=== PATIENT | male | born 1990 | race Caucasian/White ===

== ENCOUNTER 2023-04-03 11:40 | Outpatient (OUT) | payer OTHER, SELFPAY ==
[2023-04-03 13:04] LABS: Thyroid Stimulating Hormone 0.418 uIU/mL (0.358-3.740)
== END 2023-04-03 11:41 | disposition home or self-care (01) ==
LOC: LAB 11:46
DX: E05.90 Thyrotoxicosis, unspecified without thyrotoxic crisis or storm (principal)
CPT/HCPCS: 36415; 84439; 84443

== ENCOUNTER 2025-03-15 06:36 | Emergency (ER) | payer OTHER, SELFPAY ==
[2025-03-15 06:48] VITALS: BP 143/92; PULSE 78; TEMP 36.6; O2SAT 97; BMI 24.2
--- OUTSIDE RECORDS SUMMARY | 2025-03-15 06:53 | XMS_ITS | Clinical Summary ---
Author Organization [employer] [facility] Address [id number] [address] [place] [address] Care Team Providers Care Interstate Planner Name Role Phone Rafymarioedita Shantell JOSIAH-SUBSTATION WIREMAN Primary Care Provide r Allergies No known active allergies Medications MedicationSigDispense QuantityRefillsLast FilledStart DateEnd DateStatus hyoscyamine (LEVSIN) 0.125 mg tablet Take 1 tablet (0.125 mg total) by mouth every 4 (four) hours as needed for cramping. 30 tablet 4Active hydrocortisone (ANUSOL-HC) 2.5 % rectal cream Insert 1 Application into the rectum in the morning and 1 Application before bedtime. 30 g 4Active amitriptyline (ELAVIL) 25 mg tablet Take 1 tablet (25 mg total) by mouth nightly. 90 tablet 5Active omeprazole (PriLOSEC) 40 mg capsule Take 1 capsule (40 mg total) by mouth every morning before breakfast. 90 capsule 5Active Active Problems ProblemNoted DateDiagnosed MeogGdxswyp08/22/2024 Immunizations ImmunizationAdministration DatesNext DueDTaP, Qxxjfexmnbz71/07/1997,12/23/1992, 1991,1991,1991Hep B, Adolescent or Gbxofpryu35/27/2005, 11/20/2004,10/16/2004HiB06/10/1992,1991,1991,1991Influenza, Injectable, quadrivalent (PF)02/18/2018MMR12/07/1996,06/10/1992Meningococcal ANA0H58Polio, Ycuafiiiezg44/07/1997,12/23/1992,1991,1991Tdap 04/28/20056871Aunczvrtw65/21/2005,10/16/2004 Social History Tobacco UseTypesPacks/DayYears UsedDateSmoking Tobacco: Every DayCigarettes Smokeless Tobacco: Current Tobacco Cessation:Ready to Q uit: Not Asked; Counseling Given: Not Answered Alcohol UseStandard Drinks/WeekCommentsYes0 (1 standard drink = 0.6 oz pure alcohol)Overall Financial Resource Strain (CARDIA)AnswerDate RecordedHow hard is it for you to pay for the very basics like food, housing, medical care, and heating?Patient fdmynmdq79/16/2025PHQ-2AnswerDate RecordedTotal Cspmg921 PRAPARE - TransportationAnswerDate RecordedIn the past 12 months, has lack of transportation kept you from medical appointments or from getting medications? Patient /16/2025In the past 12 months, has lack of transportation kept you from meetings, work, or from getting things needed for daily living?Patient widnibcv81/16/2025Housing InstabilityAnswerDate RecordedAre you worried or concerned that in the next two months you may not have stable housing that you own, rent or stay in as a part of a household?Patient Mbxhukmz76/16/2025 ChildcareAnswerDate OjzqdzbfXvqatywykBqbisyq47/12/2019EmploymentAnswerDate VmfomymwUftndfujaaZlprhgb09/12/2019Hunger ScreeningAnswerDate RecordedWithin the past 12 months we worried whether our food would run out before we got money to buy more.Patient Sorxhrpg73/16/2025Within the past 12 months the food we bought just didn't last and we didn't have money to get more.Patient Beawrira82/16/2025 Sex and Gender InformationValueDate RecordedSex Assigned at BirthNot on file Legal JmuPpcr7012/06/2014 11:44 AM EDTGender IdentityNot on fileSexual Orientation Not on file Last Filed Vital Signs Vital SignReadingTime TakenCommentsBlood Xmtrbwab322/6411/ 8:58 AM EST Akyew967903/21/2024 8:58 AM QIGSrdupmjvwad50.7 ??C (98.1 ??F)07/14/2023 9:59 AM EDTRespiratory Ecxy685905/21/2023 8:58 AM ESTOxygen Iahwhtnqma39%03/21/2024 8:58 AM ESTInhaled Oxygen Concentration--Jkxvrk79.1 kg (148 lb)03/21/2024 8:58 AM EST Vylhzj614.7 cm (5' 8 )09/22/2023 7:51 AM EDTBody Mass Index22.505 7:51 AM EDT Plan of Treatment DateTypeDepartmentCare Team (Latest Contact Info)Dxbadhgzjne93/15/2025 3:00 PM ESTOffice Visit [facility] [address] [place] [id number] Shantell Soto, [employer]IMMER-SUBSTATION WIREMAN [address] [place], [place] [id number] Health MaintenanceDue DateLast DoneCommentsTobacco Padsqaanxu1991DTaP,Tdap and Td Vaccines (7 - Td or Tdap), 12/07/1996, 12/23/1992, Additional history existsDepression Xjfiktatn40/OVID-19 Vaccine ( season)/, 09/05/2020Influenza Vaccine /Adult BMI Rfcaqtctz04/Tobacco Screening Medical Devices Not on file Insurance Care Teams Team MemberRelationshipSpecialtyStart DateEnd Date Shantell Soto APRN-SUBSTATION WIREMAN [address] [place] [address] PCP - GeneralFamily Medicine08/12/22
--- OUTSIDE RECORDS SUMMARY | 2025-03-15 06:53 | XMS_ITS | Clinical Summary ---
Author Organization [facility] Address [address] [place] [address] Care Team Providers Care Molding Plasterer Name Role Phone Nicolas John Primary Care Provider Allergies No known active allergies Medications MedicationSigDispense QuantityRefillsLast FilledStart DateEnd DateStatus esomeprazole (NEXIUM) 40 mg ORAL capsule Indications:Abdominal pain,Reflux,Abdominal pain, periumbilicTake 1 capsule by mouth twice daily. 60 capsule ctive amitriptyline 10 mg ORAL tablet Take 1 tablet by mouth daily at bedtime. 30 tablet ctive Active Problems ProblemNoted DateDiagnosed DateAbdominal pain04/06/20119140Rldiuq42/05/2011 Social History Tobacco UseTypesPacks/DayYears UsedDateSmoking Tobacco: Every DayCigarettes Alcohol UseStandard Drinks/WeekCommentsNo0 (1 standard drink = 0.6 oz pure alcohol)Sex and Gender InformationValueDate RecordedSex Assigned at BirthNot on fileLegal NzaRxku24/02/2012 10:12 AM ESTGender IdentityNot on fileSexual OrientationNot on file Last Filed Vital Signs Vital SignReadingTime TakenCommentsBlood Moxjhosb128/6704/06/2011 9:30 AM EST Rbriu389204/06/2011 9:30 AM ESTTemperature--Respiratory Rate--Oxygen Saturation 100%04/06/2011 9:30 AM ESTInhaled Oxygen Concentration--Acqhgc44.7 kg (125 lb) 04/06/2011 9:30 AM ESTHeight--Body Mass Index-- Plan of Treatment Health MaintenanceDue DateLast DoneCommentsAnxiety Bnbquycqo80/14/2009Depression Rtllfwgjo89/14/2009HIV Jnktyvdku83/14/2009Hepatitis C Sjfbbzazs25/14/2009 DTaP,Tdap,Td Vaccine (1 - Tdap)2010Hepatitis B Vaccine (1 of 3 - 19+ 3- dose series)2010HPV Vaccine (1 - 3-dose SCDM series)2018Covid-19 Vaccine (1 - 2024- season)2025Influenza Vaccine (#1)2025 Insurance Care Teams Team MemberRelationshipSpecialtyStart DateEnd Date Nicolas John PCP - GeneralFamily Zhbfpzdi80/2/11
--- OUTSIDE RECORDS SUMMARY | 2025-03-15 06:53 | XMS_ITS | CCD ---
Author Organization [facility] Care Team Providers Care Window Draper Name Role Phone Mary Knox Unavailable Ramila Charisma Unavailable OMEGA, DR SHELBI Damon Consulting Unavailable REQUEST, DR NONE LISTED Primary Care Unavaila ble MISC, DR CABELLO Attending Unavailable MISC, DR CABELLO Admitting Unavailable MISC, DR CABELLO Consulting Unavailable SLY SOTO Referring Unavailable SLY SOTO Primary Care Unavailable Schboris PLANT ELECTRICIAN-UPHOLSTERY AUTO TRIMMER, Sly Primary Care Provide r Brittany PLANT ELECTRICIAN-UPHOLSTERY AUTO TRIMMER, Sly Primary Care Provide r SLY SOTO Attending Unavailable SLY SOTO Referring Unavailable SLY SOTO Primary Care Unavailable SLY SOTO Attending Unavailable SLY SOTO Referring Unavailable SLY SOTO Primary Care Unavailable Medications Current Medications MedicationDrug Class(es)DatesSig (Normalized)Sig (Original)amitriptyline hydrochloride 25 mg oral tablet (14 sources)Tricyclic AntidepressantStart: 74-65-1364dkkl 1 tablet by mouth once dailyamitriptyline (ELAVIL) 25 mg tablet Take 1 tablet (25 mg total) by mouth nightly. 90 tablet 1 10/12/2024 ActiveStart: 03-21-2024 End: 33-60-8108cwim 1 tablet by mouth once dailyAmitriptyline 25 mg tablet Active 25 MG PO Daily August 24, 2024 12:00amStart: 09-22-2023 End: 73-52-5548csmo 1 tablet by mouth once dailyamitriptyline (ELAVIL) 50 mg tablet Take 1 tablet (50 mg total) by mouth nightly. 90 tablet 09/22/2023 03/21/2024 DiscontinuedStart: 03-17-2023 End: 09-60-0490htzx 1 tablet by mouth once dailyamitriptyline (ELAVIL) 25 mg tablet take 1 tablet by mouth nightly 90 tablet 1 09/13/2023 09/22/2023 Discontinueddextromethorphan hydrobromide 15 mg / guaiFENesin 400 mg / pseudoephedrine hydrochloride 60 mg oraltablet (1 source)alpha-Adrenergic Agonist, Uncompetitive V-rampel-P-aspartate Receptor Antagonist, Sigma-1 AgonistStart: 17-33-4605rkyn 4 tablets by mouth every twenty-four hours as icozrtQlrhdimauerwkaz-Gg-Qxpprucwtkd (Capmist Dm) 60-15-400 mg tablet Active 1 TAB PO EVERY 4-6 HOURS as needed for cold symptoms August 24, 2024 12:00am do not exceed 4 doses per 24 hrshydrocortisone 25 mg/ml topical cream (3 sources)CorticosteroidStart: 00-18-2235amstzgqnzazemw (ANUSOL-HC) 2.5 % rectal cream Insert 1 Application into the rectum in the morning and 1 Application before bedtime. 30 g 1 03/21/2024 Activehyoscyamine sulfate 0.125 mg oral tablet (9 sources)Start: 64-69-1370bibw 1 tablet by mouth every four hours as needed for painhyoscyamine (LEVSIN) 0.125 mg tablet Take 1 tablet (0.125 mg total) by mouth every 4 (four) hours as needed for cramping. 30 tablet 07/14/2023 Active omeprazole 40 mg delayed release oral capsule (13 sources)Proton Pump InhibitorStart: 99-27-6506jkbh 1 capsule by mouth once daily before breakfastomeprazole (PriLOSEC) 40 mg capsule Take 1 capsule (40 mg total) by mouth every morning before breakfast. 90 capsule 1 10/12/2024 Active Start: 01-11-2023 End: 15-15-4381eokh 1 capsule by mouth once dailyOmeprazole 40 mg capsule,delayed release(DR/EC) Active 40 MG PO Daily August 24, 2024 12:00am Problems Active Problems Problem ClassificationProblemDateDocumented DateEpisodic/ChronicAbdominal pain (4 sources)Abdominal pain; Translations: [Abdominal pain]Onset: 08-27-2022 EpisodicAnxiety disorders (11 sources)Anxiety; Translations: [Anxiety disorder, unspecified]Onset: 264829-91-6512PhghhzcTukydpbyyp disorders (1 source)Gastroesophageal reflux disease; Translations: [Gastro-esophageal reflux disease without esophagitis]91-59-8275QzalkvnJhgbwry and fatigue (4 sources)Chronic fatigue, unspecified; Translations: [CHRONIC FATIGUE UNSPECIFIED]Onset: 53-28-7468HgajzmbIrdqrydguce deficiencies (1 source)Vitamin D deficiency, unspecified; Translations: [VITAMIN D DEFICIENCY UNSPECIFIED]Onset: 56-67-7542TtfhgilAopvc gastrointestinal disorders (6 sources)Irritable bowel syndrome; Translations: [Irritable bowel syndrome] 89-99-9738JuqcqsuPholg gastrointestinal disorders (1 source)Mixed irritable bowel syndrome; Translations: [Mixed irritable bowel syndrome]Onset: 19-32-0638MjqokanWjdze gastrointestinal disorders (1 source)Diarrhea, unspecified; Translations: [Diarrhea, unspecified]Onset: 78-84-2886CdgeyzttGzvbmmwk enteritis and ulcerative colitis (4 sources)Ulcerative colitis; Translations: [Ulcerative colitis]08-24-2024 Chronic Past or Other Problems Problem ClassificationProblemDateDocumented DateEpisodic/ChronicHemorrhoids (2 sources)Hemorrhoids; Translations: [Unspecified hemorrhoids]Onset: 03-21-2024 44-15-6641ErehlndxAmlctswsimugq and screening for infectious disease (1 source)Contact with and (suspected) exposure to other viral communicable diseasesOnset: 03-06-2021 Resolved: 17-90-4914FcqatsqiNdwb disorders (9 sources)Mood disordersOnset: Other gastrointestinal disorders (1 source)Diarrhea; Translations: [Diarrhea, unspecified]35-19-7046Dgsqtovq Residual codes; unclassified (2 sources)At risk of apnea; Translations: [Other specified personal risk factors, not elsewhere classified]24-53-9563GllnrplxQnwpoqsw codes; unclassified (1 source)Other specified personal risk factors, not elsewhere classified; Translations: [Other specified personal risk factors, not elsewhere classified] Onset: 94-73-3691LdhxlujfUnwwnrzsekxe (3 sources)H/O esophagogastroduodenoscopy; Translations: [H/O esophagogastroduodenoscopy]Unclassified (1 source)Contact with and (suspected) exposure to covid-19 Z20.822Viral infection (3 sources)COVID-19Onset: 03-06-2021 Resolved: 10-29-2021 Results Test NameValueInterpretationReference RangeFacilityC DIFFICILE BY PCRon 07-14-2023. difficile toxin genes CHARLES+probe Ql (Stl)TOXIGENIC C DIFF Negative (qualifier value) 027 NAP1 Negative (qualifier value)NormalPRNEGProUt Health TylerComment on above: Performed By: #### 07125-9 #### [facility] ([id number]) [address] [place] [address], [place] [address] [facility] ([id number]) [address], [address] [place] [address] #### 08051-8 #### [facility] ([id number]) [address], [address] [place], [place] [address]XXI AND AUTO DIFFon 83-71-0383LQRTWXAW BASOPHIL0.0 X10E9/LNormal 0.0-0.2PThe Christ HospitalComment on above:Performed By: #### JULIETA, 14087-9, CMP #### [facility] ([id number]) [address], [address] [place], [place] [address]HVQWSBIO NEUTROPHIL4.3 X10E9/LNormal1.5-6.6ProUt Health TylerComment on above:Performed By: #### JULIETA, 40616-9, CMP #### [facility] ([id number]) [address], [address] [place], [place] [address]Zbofzaplo/100 WBC (Bld)0.6 %NormalCoshocton Regional Medical Center Comment on above:Performed By: #### JULIETA, 31935-1, CMP #### [facility] ([id number]) [address], [address] [place], [place] [address]Hxitbvwertp (Bld) [#/Vol]0.1 10*3/uLNormal0.0-0.4Coshocton Regional Medical CenterComment on above:Performed By: #### JULIETA, 40400-2, CMP #### [facility] ([id number]) [address], [address] [place], [place] [address]Vwzhhjxmavg/100 WBC (Bld)1.2 %NormalProUt Health Tyler Comment on above:Performed By: #### JULIETA, 75386-0, CMP #### [facility] ([id number]) [address], [facility] [address] [place], [place] [address]Wexqbtonjbb distribution width (RBC) [Ratio]12.8 %Normal 11.5-15.0ProUt Health TylerComment on above:Performed By: #### CBCAngel, 15259-9, CMP #### [facility] ([id number]) [address], [address] [place], [place] [address]Gjxsmdffyd (Bld) [Volume fraction]44.3 %Pmobyv69-20PtiUfgfatUt Health TylerComment on above:Performed By: #### CBCAngel, 09200-1, CMP #### [facility] ([id number]) [address] [address] [place], [place] [address]Dtrelcmbmw (Bld) [Mass/Vol]15.5 g/hJWwurvp59.0-17.0ProUt Health TylerComment on above:Performed By: #### CBCAngel, 26445-3, CMP #### [facility] ([id number]) [address], [address] [place], [place] [address]Doinzuxkkaz (Bld) [#/Vol]1.4 10*3/uLNormal1.0-3.5PThe Christ HospitalComment on above:Performed By: #### CBCAngel, 97822-8, CMP #### [facility] ([id number]) [address], [address] [place], [place] [address]Pauhjicjoff/100 WBC (Bld)22.2 %NormalCoshocton Regional Medical Center Comment on above:Performed By: #### JULIETA, 42955-0, CMP #### [facility] ([id number]) [address], [address] [place], [place] [address]OFI (RBC) [Entitic mass]33.5 hgGfbygo08-84YfjLysqnaUt Health TylerComment on above:Performed By: #### JULIETA, 35115-6, CMP #### [facility] ([id number]) [address], [address] [place], [place] [address]MVXE (RBC) [Mass/Vol]35.1 g/pDXluhrq14-36HerVsrzqzUt Health TylerComment on above:Performed By: #### JULIETA, 37780-1, CMP #### [facility] ([id number]) [address], [address] [place], [place] [address]IIW (RBC) [Entitic vol]96 qWHogbij64-280IxxSywqly Fremont HospitalComment on above:Performed By: #### JULIETA, 19005-5, CMP #### [facility] ([id number]) [address], [address] [place], [place] [address]Ugwmxltlp (Bld) [#/Vol]0.5 10*3/uLNormal0-0.9Coshocton Regional Medical CenterComment on above:Performed By: #### JULIETA, 04603-5, CMP #### [facility] ([id number]) [address], [address] [place], [place] [address]Iccnggyan/100 WBC (Bld)7.3 %NormalCoshocton Regional Medical Center Comment on above:Performed By: #### JULIETA, 32045-3, CMP #### [facility] ([id number]) [address], [address] [place], [place] [address]Livyuydihli/100 WBC (Bld)68.7 %NormalCoshocton Regional Medical Center Comment on above:Performed By: #### JULIETA, 82215-9, CMP #### [facility] ([id number]) [address], [address] [place] [address]Gbnoerzi mean volume (Bld) [Entitic vol]9.2 fLNormal7-12 [facility] Regional Medical CenterComment on above:Performed By: #### JULIETA, 24283-7, CMP #### [facility] ([id number]) [address], [address] [place] [address]Eixkpxpzt (Bld) [#/Vol]212 10*3/dJZlggid214-259HouNcvtuk [facility]remont HospitalComment on above:Performed By: #### JULIETA, 78660-4, CMP #### [facility] ([id number]) [address], [address] [place] [address]UNV COUNT4.63 X10E12/LNormal4.10-5.70[facility] Comment on above:Performed By: #### JULIETA, 48954-5, CMP #### [facility] ([id number]) [address], [address] [place], [place] [address]WZB (Bld) [#/Vol]6.2 10*3/uLNormal4.0-11.0Coshocton Regional Medical CenterComment on above:Performed By: #### JULIETA, 23368-4, CMP #### [facility] ([id number]) [address], [address] [place] [address]ILB auto differentialon 05-53-9248Jxkcrcprp (Bld) [#/Vol]0.0 10*3/uLKettering Health Washington TownshipBasophils/100 WBC (Bld)0.6 %[facility] TownshipEosinophils (Bld) [#/Vol]0.1 10*3/uLKettering Health Washington TownshipEosinophils/100 WBC (Bld)1.2 %[facility] TownshipErythrocyte distribution width (RBC) [Ratio]12.8 %11.5 - 15.0 %[facility] TownshipHematocrit (Bld) [Volume fraction]44.3 %39 - 49 %[facility] TownshipHemoglobin (Bld) [Mass/Vol]15.5 g/dL13.0 - 17.0 g/dLKettering Health Washington TownshipLymphocytes (Bld) [#/Vol]1.4 10*3/uL [facility] TownshipLymphocytes/100 WBC (Bld)22.2 %[facility] TownshipMCH (RBC) [Entitic mass]33.5 pg27 - 34 pgPWyandot Memorial HospitalMCHC (RBC) [Mass/Vol]35.1 g/dL32 - 36 g/dLKettering Health Washington TownshipMCV (RBC) [Entitic vol]96 fL80 - 100 [facility] HospitalMonocytes (Bld) [#/Vol]0.5 10*3/[facility] HospitalMonocytes/100 WBC (Bld)7.3 %[facility] TownshipNeutrophils (Bld) [#/Vol]4.3 10*3/[facility] HospitalNeutrophils/100 WBC (Bld)68.7 % [facility] TownshipPlatelet mean volume (Bld) [Entitic vol]9.2 fL7 - 12 fL [facility] TownshipPlatelets (Bld) [#/Vol]212 10*3/[facility] RBC (Bld) [#/Vol]4.63 10*6/[facility] HospitalWBC corrected for nucl RBC Auto (Bld) [#/Vol]6.2PEncompass Health Rehabilitation Hospital of MechanicsburgCOMPREHENSIVE METABOLIC PANELon 47-34-0583Cxnkcwe [Mass/Vol]4.9 g/dLNormal3.2-5.3PThe Christ HospitalComment on above:Performed By: #### JULIETA, 63363-2, CMP #### [facility] ([id number]) [address], [address] [place] [address]TYV [Catalytic activity/Vol]59 U/ZGabxhi92-982AocIzbmujUt Health TylerComment on above:Performed By: #### JULIETA, 38540-5, CMP #### [facility] ([id number]) [address], [address] [place] [address]UJU [Catalytic activity/Vol]21 U/LNormal0-40ProUt Health TylerComment on above:Performed By: #### JULIETA, 41826-6, CMP #### [facility] ([id number]) [address], [address] [place], [place] [address]Hmjcr gap [Moles/Vol]8 mmol/LNormal5-15ProUt Health TylerComment on above:Performed By: #### JULIETA, 72539-5, CMP #### [facility] ([id number]) [address], [address] [place], [place] [address]YJR [Catalytic activity/Vol]15 U/LNormal0-41ProUt Health TylerComment on above:Performed By: #### JULIETA, 30206-3, CMP #### [facility] ([id number]) [address], [address] [place], [place] [address]Dkhigutvk [Mass/Vol]0.5 mg/dLNormal0.3-1.2PThe Christ HospitalComment on above:Performed By: #### JULIETA, 21777-2, CMP #### [facility] ([id number]) [address], [address] [place], [place] [address]Anjymlc [Mass/Vol]9.7 mg/dLNormal8.5-10.5PYuma District Hospital HospitalComment on above:Performed By: #### JULIETA 38777-8, CMP #### [facility] ([id number]) [address], [address] [place], [place] [address]Cmvktjqw [Moles/Vol]102 mmol/NCzqixq77-784DrbZlqsuuCoshocton Regional Medical CenterComment on above:Performed By: #### JULIETA, 38356-5, CMP #### [facility] ([id number]) [address], [address] [place], [place] [address]KL5 [Moles/Vol]30 mmol/ATwnvpv66-43GclKqqjukThe Christ Hospital Comment on above:Performed By: #### JULIETA, 11587-7, CMP #### [facility] ([id number]) [address], [address] [place], [place] [address]Oolawtrlmz [Mass/Vol]0.65 mg/dLNormal0.60-1.30ProUt Health TylerComment on above:Result Comment: METHOD TRACEABLE TO IDMS STANDARD Performed By: #### JULIETA, 77872-9, CMP #### [facility] ([id number]) [address], [address] [place], [place] [address]fRHJ (CKD-EPI) NON-RACE DEPENDENT>90Normal>59ProUt Health TylerComment on above:Result Comment: Reported eGFR is based on the CKD-EPI 2021 equation that does not use a race coefficient.Performed By: #### JULIETA, 64972-3, CMP #### [facility] ([id number]) [address], [address] [place], [place] [address]Aiqkccr [Mass/Vol]88 mg/uOEdcfmj45-57JlgBvnfavCoshocton Regional Medical Center Comment on above:Performed By: #### JULIETA, 51136-9, CMP #### [facility] ([id number]) [address], [address] [place], [place] [address]Qcwkifaml [Moles/Vol]3.3 mmol/LLow3.5-5.0Coshocton Regional Medical CenterComment on above:Performed By: #### JULIETA, 16406-4, CMP #### [facility] ([id number]) [address], [address] [place], [place] [address]Lqyhfxc [Mass/Vol]7.2 g/dLNormal6.0-8.0ProUt Health TylerComment on above:Performed By: #### JULIETA, 80886-8, CMP #### [facility] ([id number]) [address], [address] [place], [place] [address]Gbfrdb [Moles/Vol]140 mmol/BIgrrju174-959RjnYzqrud [facility]remont HospitalComment on above:Performed By: #### JULIETA, 88092-1, CMP #### [facility] ([id number]) [address], [address] [place], [place] [address]Bpvq nitrogen [Mass/Vol]11 mg/dLNormal5-23ProUt Health TylerComment on above:Performed By: #### JULIETA, 92764-6, CMP #### [facility] ([id number]) [address], [address] [place], [place] [address]Syxrzpzfhbdgh metabolic panelon 46-78-3811Lyfxqua [Mass/Vol]4.9 g/dL3.2 - 5.3 g/dLProMedica Health SystemALP [Catalytic activity/Vol]59 U/L39 - 130 U/LProMedica Health SystemALT No additional P-5'-P [Catalytic activity/Vol] 21 U/L0 - 40 U/LProMedica Health SystemAnion gap [Moles/Vol]8 mmol/L5 - 15 mmol/LProMedica Health SystemAST [Catalytic activity/Vol]15 U/L0 - 41 U/L [facility] Health SystemBilirubin [Mass/Vol]0.5 mg/dL0.3 - 1.2 mg/dLProMedica Health SystemCalcium [Mass/Vol]9.7 mg/dL8.5 - 10.5 mg/dLProMedica Health System Chloride [Moles/Vol]102 mmol/L98 - 109 mmol/[facility] SystemCO2 [Moles/Vol]30 mmol/L22 - 32 mmol/[facility] SystemCreatinine [Mass/Vol] 0.65 mg/dL0.60 - 1.30 mg/dLKettering Health Washington TownshipComment on above:METHOD TRACEABLE TO IDOK STANDARDeGFR (CKD-EPI)non-race dependent- PINAlvin J. Siteman Cancer CenterComment on above: Reported eGFR is based on the CKD-EPI 2020 equation that does not use a race coefficient. Glucose [Mass/Vol]88 mg/dL65 - 99 mg/dLKettering Health Washington TownshipInterpretation and review of laboratory resultsAbnormalKettering Health Washington TownshipPotassium [Moles/Vol]3.3 mmol/LLow3.5 - 5.0 mmol/[facility] Health SystemProtein [Mass/Vol]7.2 g/dL6.0 - 8.0 g/dLCrawley Memorial Hospitalodium [Moles/Vol]140 mmol/L134 - 146 mmol/[facility] SystemUrea nitrogen [Mass/Vol]11 mg/dL5 - 23 mg/dLKindred Hospital South PhiladelphiaESR Photometric method (Bld) [Velocity]on 16-33-4130DzfFfibzwWyandot Memorial HospitalESR, ERYTHROCYTE SEDIMENTATION RATE<6Ynxype6-89MwvUrgliaCoshocton Regional Medical CenterComment on above:Result Comment: (LESS THAN)Performed By: #### CBCA, 96609-2, CMP #### [facility] ([id number]) [address] [place] [address], [address] [place], [place] [address]Yznojapfidu Sedimentation Rate (ESR)on 54-39-1995TRO Photometric method (Bld) [Velocity]mm/h0 - 15 mm/[facility] Hospital SouthComment on above: (LESS THAN)GI PANELon 88-22-1601Aizudhfadabjohla pathogens DNA and RNA panel CHARLES+non-probe (Stl)SPECIMEN SOURCE STOOL CAMPYLOBACTER Not detected (qualifier value) PLESIOMONAS Not detected (qualifier value) SALMONELLA Not detected (qualifier value) VIBRIO Not detected (qualifier value) VIBRIO CHOLERAE Not detected (qualifier value) Y. ENTEROCOLITICA Not detected (qualifier value) AGGREGATIVE E COLI Not detected (qualifier value) PATHOGENIC E COLI Not detected (qualifier value) TOXIGENIC E COLI Not detected (qualifier value) SHIGA TOXIN E COLI Not detected (qualifier value) SHIGELLA-E COLI Not detected (qualifier value) CRYPTOSPORIDIUM Not detected (qualifier value) CYCLOSPORA Not detected (qualifier value) E HISTOLYTICA Not detected (qualifier value) GIARDIA LAMBLIA Not detected (qualifier value) ADENOVIRUS Not detected (qualifier value) ASTROVIRUS Not detected (qualifier value) NOROVIRUS Not detected (qualifier value) ROTAVIRUS A Not detected (qualifier value) SAPOVIRUS Not detected (qualifier value)NormalNDETProUt Health TylerComment on above:Performed By: #### 11421-1 #### [facility] ([id number]) [address] [place] [address], [place] [address] [facility] ([id number]) [address] [place] [address], [address] [place] [address] #### 76903-9 #### [facility] ([id number]) [address] [place] [address], [address] [place], [place] [address]Odeyoqrpeuqrfeou pathogens DNA and RNA panel CHARLES+non-probe (Stl) on 93-78-3715Ymfvrvtmcv 40+41 DNA CHARLES+non-probe Ql (Stl)Not detectedNot Detected^Not DetectedKettering Health Washington TownshipAstrovirus subtypes 1-8 RNA CHARLES+non- probe Ql (Stl)Not detectedNot Detected^Not DetectedKettering Health Washington TownshipC. cayetanensis DNA CHARLES+non-probe Ql (Stl)Not detectedNot Detected^Not Detected [facility] SystemC. coli+jejuni+upsaliensis DNA CHARLES+non-probe Ql (Stl)Not detectedNot Detected^Not DetectedProAshtabula County Medical Center SystemCryptosporidium sp DNA CHARLES+non-probe Ql (Stl)Not detectedNot Detected^Not DetectedProAshtabula County Medical Center SystemE. coli enteroaggregative Patrice plasmid aggR+aatA genes CHARLES+non-probe Ql (Stl)Not detectedNot Detected^Not DetectedOhioHealth Van Wert Hospital Health SystemE. coli enteropathogenic eae gene CHARLES+non-probe Ql (Stl)Not detectedNot Detected^Not DetectedProTrihealth Bethesda North HospitalE. coli enterotoxigenic ltA+st1a+st1b genes HCARLES+non-probe Ql (Stl)Not detectedNot Detected^Not DetectedProTrihealth Bethesda North HospitalE. coli stx1+stx2 genes CHARLES+non-probe Ql (Stl)Not detectedNot Detected^Not DetectedKettering Health Washington TownshipE. histolytica DNA CHARLES+non-probe Ql (Stl)Not detectedNot Detected^Not DetectedKettering Health Washington TownshipG. lamblia DNA CHARLES+non- probe Ql (Stl)Not detectedNot Detected^Not DetectedKettering Health Washington Township Norovirus genogroup I+II RNA CHARLES+non-probe Ql (Stl)Not detectedNot Detected^Not DetectedKettering Health Washington TownshipP. shigelloides DNA CHARLES+non-probe Ql (Stl)Not detectedNot Detected^Not DetectedKettering Health Washington TownshipRotavirus A RNA CHARLES+non- probe Ql (Stl)Not detectedNot Detected^Not DetectedCrawley Memorial Hospital. enterica+bongori DNA CHARLES+non-probe Ql (Stl)Not detectedNot Detected^Not Detected [facility]ley Memorial Hospitalapovirus genogroups I+II+IV+V RNA CHARLES+non-probe Ql (Stl) Not detectedNot Detected^Not DetectedCrawley Memorial Hospitalhigella species+EIEC invasion plasmid antigen H ipaH gene CHARLES+non-probe Ql (Stl)Not detectedNot Detected^Not DetectedCrawley Memorial Hospitalpecimen source Nom (Body fld)STOOLProTrihealth Bethesda North HospitalV. cholerae DNA CHARLES+non-probe Ql (Stl)Not detectedNot Detected^Not DetectedKettering Health Washington TownshipV. cholerae+parahaemolyticus+vulnificus DNA CHARLES+non-probe Ql (Stl)Not detectedNot Detected^Not DetectedKettering Health Washington TownshipY. enterocolitica DNA CHARLES+non-probe Ql (Stl)Not detectedNot Detected^Not DetectedKindred Hospital South PhiladelphiaCBC AUTO DIFFon 17-91-1225YLPU #0.0 103/ulNormal0.0-0.1The [facility] Brentwood HospitalComment on above:Performed By: #### CBC #### [facility] [address] [place] [address] Dr. Lynn ValenciaBasophils/100 WBC (Bld)0.6 %Normal0.2-2.0[facility] Comment on above:Performed By: #### CBC #### [facility] [address] [address] [address] Lynn Montague #0.2 103/ulNormal0.0-0.7The [facility] & Brentwood HospitalComment on above: Performed By: #### CBC #### [facility] [address] [address] [address] Lynn Wilhelmosinophils/100 WBC (Bld)3.7 %Normal0.9-7.0[facility] Comment on above:Performed By: #### CBC #### [facility] [address] [place] [address] Dr. Lynn Wilhelmrythrocyte distribution width (RBC) [Ratio]12.3 %Xdovfj04.0-15.0 [facility] Brent[facility] HospitalComment on above:Performed By: #### CBC #### [facility] [address] [place] [address] Dr. Lynn ValenciaHematocrit (Bld) [Volume fraction]46.5 %Cvlscs91.0-54.0[facility]:Performed By: #### CBC #### [facility] [address] [place] [address] Dr. Lynn ValenciaHemoglobin (Bld) [Mass/Vol]16.0 g/pFBnffya39.0-18.0[facility]:Performed By: #### CBC #### [facility] [address] [place] [address] Dr. Lynn Walls #0.02 10e3/ulNormal0.00-0.03[facility] above:Performed By: #### CBC #### [facility] [address] [place] [address] Dr. Lynn Walls %0.4 %Normal0.0-0.5[facility]: Performed By: #### CBC #### [facility] [facility] [address] [address] [address] Lynn Gonzales #1.5 103/ulNormal1.2-3.8The [facility] HospitalComment on above:Performed By: #### CBC #### [facility] [address] [place] [address] Dr. Lynn Amarohocytes/100 WBC (Bld)28.8 %Asfxcc55.5-60.0The [facility] HospitalComment on above:Performed By: #### CBC #### [facility] [address] [place] [address] Dr. Lynn WagonerUAL DIFF REQNONormalThe [facility] HospitalComment on above: Performed By: #### CBC #### [facility] [address] [place] [address] Dr. Lynn Strickland (RBC) [Entitic mass]32.7 ppYaqqgz02.9-34.0The [facility] HospitalComment on above:Performed By: #### CBC #### [facility] [address] [place] [address] Dr. Lynn Giraldo (RBC) [Mass/Vol]34.4 g/pVOrqjva19.9-35.2The [facility] HospitalComment on above:Performed By: #### CBC #### [facility] [address] [place] [address] Dr. Lynn Giraldo (RBC) [Entitic vol]94.9 fLCritically high80.0-94.0The [facility] HospitalComment on above:Performed By: #### CBC #### [facility] [address] [place] [address] Dr. Lynn Koch #0.3 103/ulNormal0.3-0.8[facility] HospitalComment on above:Performed By: #### CBC #### [facility] [address] [place] [address] Dr. Lynn Lakhaniocytes/100 WBC (Bld)6.6 %Normal1.7-12.0The [facility] Comment on above:Performed By: #### CBC #### [facility] [address] [place] [address] Dr. Lynn BrowerUT #3.1 103/ulNormal1.4-6.5The [facility] Centerment on above:Performed By: #### CBC #### [facility] [address] [place] [address] Dr. Lynn Browerutrophils/100 WBC (Bld)59.9 %Cdykaw55.0-75.0The [facility] on above:Performed By: #### CBC #### [facility] [address] [place] [address] Dr. Lynn ValenciaPlatelet mean volume (Bld) [Entitic vol]10.1 fLNormal9.5-13.5The [facility] on above:Performed By: #### CBC #### [facility] [address] [place] [address] Dr. Lynn ValenciaPLT202 103/mwRpqhsp967-002Ilo [facility] on above: Performed By: #### CBC #### [facility] [address] [place] [address] Dr. Lynn ValenciaRBC4.90 106/ulNormal4.70-6.10The [facility] on above:Performed By: #### CBC #### [facility] [address] [place] [address] Dr. Lynn ValenciaWBC5.2 103/ulNormal4.0-11.0The [facility] on above: Performed By: #### CBC #### [facility] [address] [place] [address] Dr. Lynn ValenciaFRGAURANG T4on 46-78-9781Yjxj T4 [Mass/Vol]1.08 ng/dLNormal0.76-1.46 The [facility] on above:Performed By: #### FT4, VITAD #### [facility] [address] [place] [address] Dr. Lynn ValenciaPROF 14(COMP METB)on 75-32-5114Prwcjax [Mass/Vol]4.8 g/dLNormal 3.4-5.0The [facility] HospitalComment on above:Performed By: #### CMP, TSH #### [facility] [address] [place] [address] Dr. Lynn ValenciaAlbumin/Globulin [Mass ratio]1.5 {ratio}NormalThe [facility] HospitalComment on above:Performed By: #### CMP, TSH #### [facility] [address] [address] [address] Lynn Boyle [Catalytic activity/Vol]58 U/WHkggll73-655Arr [facility] HospitalComment on above:Performed By: #### CMP, TSH #### [facility] [address] [place] [address] Dr. Lynn Rivera [Catalytic activity/Vol]32 U/MXuyumk55-57Pfz [facility] HospitalComment on above:Performed By: #### CMP, TSH #### [facility] [address] [place] [address] Dr. Lynn Molina gap [Moles/Vol]10.3 mmol/LNormalThe [facility] Comment on above:Performed By: #### CMP, TSH #### [facility] [address] [place] [address] Dr. Lynn Coy [Catalytic activity/Vol]18 U/NTqdgqm77-38Xwg [facility] HospitalComment on above:Performed By: #### CMP, TSH #### [facility] [address] [place] [address] Dr. Lynn ValenciaBilirubin [Mass/Vol]0.8 mg/dLNormal0.2-1.0The [facility] Comment on above:Performed By: #### CMP, TSH #### [facility] [address] [place] [address] Dr. Lynn ValenciaCalcium [Mass/Vol]9.2 mg/dLNormal8.5-10.1The [facility] Comment on above:Performed By: #### CMP, TSH #### [facility] [address] [place] [address] Dr. Yilan ChangChloride [Moles/Vol]104 mmol/QNucyyd08-841Cyf [facility] Comment on above:Performed By: #### CMP, TSH #### [facility] [address] [place] [address] Dr. Lynn ValenciaCO2 [Moles/Vol]31.6 mmol/LHlttlw68.0-32.0The [facility] Comment on above:Performed By: #### CMP, TSH #### [facility] [address] [address] [address] Lynn ValenciaCreatinine [Mass/Vol]0.81 mg/dLNormal0.70-1.30The [facility] HospitalComment on above:Performed By: #### CMP, TSH #### [facility] [address] [place] [address] Dr. Lynn WilhelmGFR-AF BENINESE>60Normal>=60The [facility] HospitalComment on above:Performed By: #### CMP, TSH #### [facility] [address] [place] [address] Dr. Lynn WilhelmGFR-NON AF BENINESE>60Normal>=60The [facility] HospitalComment on above:Performed By: #### CMP, TSH #### [facility] [address] [place] [address] Dr. Lynn ValenciaGlobulin (S) [Mass/Vol]3.2 g/dLNormalThe [facility] HospitalComment on above:Performed By: #### CMP, TSH #### [facility] [address] [place] [address] Dr. Lynn ValenciaGlucose [Mass/Vol]95 mg/jIXtgytw26-963Ask [facility] Comment on above:Performed By: #### CMP, TSH #### [facility] [address] [place] [address] Dr. Lynn ValenciaPotassium [Moles/Vol]3.9 mmol/LNormal3.5-5.1The [facility] Comment on above:Performed By: #### CMP, TSH #### [facility] [address] [place] [address] Dr. Lynn ValenciaProtein [Mass/Vol]8.0 g/dLNormal6.4-8.2The [facility] Comment on above:Performed By: #### CMP, TSH #### [facility] [address] [place] [address] Dr. Lynn Riveradium [Moles/Vol]142 mmol/HAegkxm922-589Hoo [facility] Comment on above:Performed By: #### CMP, TSH #### [facility] [address] [place] [address] Dr. Lynn Be nitrogen [Mass/Vol]11.0 mg/dLNormal7.0-18.0The [facility] HospitalComment on above:Performed By: #### CMP, TSH #### [facility] [address] [place] [address] Dr. Lynn Be nitrogen/Creatinine [Mass ratio]13.6 mg/mgNoThe University of Toledo Medical CenterComment on above:Performed By: #### CMP, TSH #### [facility] [address] [place] [address] Dr. Lynn Arnold 08-86-1051DMU5.314 uIU/mLCritically low0.358-3.740The [facility] HospitalComment on above:Performed By: #### CMP, TSH #### [facility] [address] [place] [address] Dr. Lynn ValenciaVITAMIN D 25 OHon 10-24-9584NEH D 25-OH19.4 ng/mLNormalThe [facility] HospitalComment on above:Performed By: #### FT4, VITAD #### [facility] [address] [place] [address] Dr. Lynn Moran D RANGESSEE BELOWGood Samaritan HospitalComment on above: Result Comment: <20 ng/mL Vit D deficient 20 - <30 ng/mL Vit D insufficient 30 - 100 ng/mL Vit D sufficient >100 ng/mL Potential ToxicityPerformed By: #### FT4, VITAD #### [facility] [address] [place] [address] Dr. Lynn Wu KUB 1 VIEWon 00-20-2891QN KUB 1 VIEWEXAMINATION: XR KUB 1 VIEW HISTORY: Lower abdominal pain COMPARISON: No relevant comparison available. FINDINGS: BOWEL GAS PATTERN: Large amount of stool identified throughout the colon and rectum. Nonobstructive bowel gas pattern. CALCIFICATIONS: None significant. OTHER: Negative. No abnormal gaseous collections. IMPRESSION: Large amount of stool throughout the colon and rectum Electronically authenticated by: SHELBI DUFF Date: 2022-08-22 14:31[facility] HospitalCOVID Quick Testingon 14-03-7018DtdasxYljnehkwVqaui [facility] Other COVID Quick Testingon 63-54-6151WpnumeQdsvawfnTuxla [facility] Other covid Quick Testingon 84-86-9612EbnmbyKrxhrqvbVlmmb [facility] Other Vital Signs Date TimeVital SignValuePerforming MsbdcroqnCztxudug94-91-3658 10:26-0400Body wsbyub186.72 cmMet[facility]04-24-2025 10:26-0400Body mass index (BMI) [Ratio]22.7 kg/t6PouzumyncMetrohealth Main Campus Medical Center04-24-2025 10:26-0400Body lgkcyemqqev30.1 [degF][facility]04-24-2025 10:26-0400Body orhnwh98.75 kgMetrohealth [facility] Campus [facility] Center04-24-2025 10:26-0400Diastolic blood pdcpmsqe87 mm[Hg][facility] 08-24-2024 10:26-0400Heart rate83 /[facility] 08-24-2024 10:26-0400Respiratory rate14 /[facility] 08-24-2024 10:26-6403ScK7% (BldA) [Mass fraction]100 %[facility]04-24-2025 10:26-0400Systolic blood rxmdyjjp953 mm[Hg][facility]11-19-2024 08:58-0500Body mass index (BMI) [Ratio]22.5 kg/x9SlbzopSly GOMEZ Work Phone: [phone]-[facility]11-19-2024 08:58-0500Body .13 kgSly Soto [employer] ELECTRICIAN-[employer]ERY AUTO [employer]IMMER Work Phone: [phone]-[facility]11-19-2024 08:58-0500Diastolic blood cuqkbloy37 mm[Hg]Sly Soto [employer] ELECT[employer]ICIAN[employer]STERY AUTO [employer]IMMER Work Phone: [phone]-[facility]11-19-2024 08:58-0500Heart rate 68 /minSly Soto PL[employer] ELECTRICIAN[employer]STERY AUTO TRIMMER Work Phone: [phone] [place], [place] [address]111-19-2024 08:58-0500 Respiratory rate16 /minSly Soto PLANT ELECTRICIAN[employer]UPHOLSTERY AUTO TRIMMER Work Phone: [phone]-[facility]11-19-2024 08:58-3889BaO6% (BldA) [Mass fraction]99 %Sly Soto [employer] ELECT[employer]ICIAN[employer]UPH[employer]STERY AUTO TRIMMER Work Phone: [phone]-[facility]11-19-2024 08:58-0500Systolic blood xhnhzrky631 mm[Hg]Sly Soto PL[employer] ELECT[employer]ICIAN[employer]UPH[employer]STERY AUTO TRIMMER Work Phone: [phone]-[facility]05-22-2024 07:51-0400Body .7 cmSly Soto PLANT ELECTRICIAN-UPHOLSTERY AUTO TRIMMER Work Phone: [phone]-[facility] Center[facility] [employer] Athaah01-26-6121 07:51-0400Body mass index (BMI) [Ratio]21.29 kg/j7UwizhoSly Soto PL[employer] ELECT[employer]ICIAN[employer]STERY AUTO TRIMMER Work Phone: [phone]-[facility] [employer] Dodabp67-75-8190 07:51-0400Body wqgtgu76.5 kgSly Soto PL[employer] ELECTRICIAN[employer]UPH[employer]STERY AUTO TRIMMER Work Phone: [phone]-[facility]05-22-2024 07:51-0400Diastolic blood ynbuwgda14 mm[Hg]Sly Soto PL[employer] ELECTRICIAN[employer]UPHOLSTERY AUTO TRIMMER Work Phone: [phone]-[facility]05-22-2024 07:51-0400Heart rate 98 /minSly Soto PLANT ELECTRICIAN[employer]UPHOLSTERY AUTO TRIMMER Work Phone: [facility] InstituteMyRepublic Crkdca02-01-6498 07:51-0400 Respiratory rate16 /minSly Soto PLANT ELECTRICIAN-UPHOLSTERY AUTO TRIMMER Work Phone: [facility]05-22-2024 07:51-9648WdN7% (BldA) [Mass fraction]99 %Sly Soto PL[employer] ELECTRICIAN[employer]UPHOLSTERY AUTO TRIMMER Work Phone: [facility] [employer] Otktom14-10-4629 07:51-0400Systolic blood hayfcznu742 mm[Hg]Sly Soto [employer] ELECT[employer]ICIAN[employer]OLSTERY AUTO TRIMMER Work Phone: [facility]03-13-2024 09:59-0400Body mass index (BMI) [Ratio]21.44 kg/p7YbfhmySly Freyer [employer] E[employer]ICIAN[employer]ERY AUT[employer] TRIMMER Work Phone: [facility] [employer] Hdbjzt35-33-5039 09:59-0400Body xllyrirtirm61.1 [degF]Sly Soto PL[employer] ELECT[employer]ICIAN[employer]UPH[employer]STERY AUTO TRIMMER Work Phone: [facility] [employer] Btyxbf04-37-4479 09:59-0400Body .96 kgSly Soto PL[employer] ELECTRICIAN[employer]UPHOLSTERY AUTO TRIMMER Work Phone: [facility] [employer] Pounil79-65-5322 09:59-0400Diastolic blood teiwqxsi63 mm[Hg]Sly Soto [employer] ELECT[employer]ICIAN[employer]OLSTERY AUTO TRIMMER Work Phone: [facility] [employer] Zfwnaf26-76-3862 09:59-0400Heart rate 88 /minSly Freyer PLANT ELECTRICIAN-UPHOLSTERY AUTO TRIMMER Work Phone: [facility] [employer] Efpjsr83-41-6205 09:59-0400 Respiratory rate16 /minSly Soto PLANT ELECTRICIAN[employer]UPHOLSTERY AUTO TRIMMER Work Phone: [facility] [employer] Vytfnp92-87-4543 09:59-3500ZpK5% (BldA) [Mass fraction]98 %Sly Soto PLANT ELECTRICIAN-UPHOLSTERY AUTO TRIMMER Work Phone: [facility]03-13-2024 09:59-0400Systolic blood qjmguyas407 mm[Hg]Sly Soto PATRICIA Work Phone: [facility] CenterVOZ02-06-2023 10:30-0500Body .09 cmPsandie Mcgrath Other [employer] Other 02-06-2023 10:30-0500Body mass index (BMI) [Ratio] 19.14 kg/c6Eajxne Ramila Other [employer] Other 02-06-2023 10:30-0500Body qnypxdwqvaa95.5 [degF]Charisma Guallpamond Other [employer] Other 02-06-2023 10:30-0500Body ofvbyq63.7 kgParuthie Ramila Other [employer] Other 02-06-2023 10:30-0500Respiratory rate18 /minCharisma Mcgrath Other [employer] Other 02-06-2023 10:30-2677YoA3% (BldA) [Mass fraction]98 % Charisma Ramila Other [employer] Other 06-29-2022 11:45-0400Body orqres973.09 cmPcka Ramila Other [employer] Other 06-29-2022 11:45-0400Body mass index (BMI) [Ratio] 19.91 kg/x8Iecoac Ramila Other [employer] Other 06-29-2022 11:45-0400Body yipmzqsthqg51.7 [degF]Charisma Mcgrath Other [email or web address] Other 06-29-2022 11:45-0400Body amjfwk17.97 kgCharisma Mcgrath Other [email or web address] Other 06-29-2022 11:45-8879DyN6% (BldA) [Mass fraction]96 % Charisma Mcgrath Other [employer] Other 11-04-2021 11:45-0400Body .09 cmSles Knox Other [employer] Other 11-04-2021 11:45-0400Body mass index (BMI) [Ratio]19.3 kg/u8Feyhruqmvmissael Knox Other [employer] Other 11-04-2021 11:45-0400Body kkpxzrjbean77 [degF] Mary Knox Other [facility] Other 11-04-2021 11:45-0400Body ovlntk44.15 kgStmissael Knox Other [email or web address] Other 11-04-2021 11:45-0400Respiratory rate18 /minSles Knox Other [email or web address] Other 11-04-2021 11:45-5000PeN4% (BldA) [Mass fraction]97 % Mary Knox Other [email or web address] Other Encounters Encounter DateEncounter TypeCare ProviderFacilityStart: 10-18-2024 End: 83-97-2343Twmmkp outpatient visit 15 minutesKendra Freyer PLANT ELECTRICIAN-U[employer]STERY AUTO TRIMMER Work Phone: [facility]icians Family MedicineComment on above: Anxiety (Primary Dx); Irritable bowel syndrome with both constipation and diarrheaStart: 10-18-2024 End: 73-88-9972uwhgpdjkqrOWUMJFSt. [facility] Start: 10-12-2024 End: 52-63-2818BhzuknNhftspe [facility] Start: 08-24-2024 End: 63-22-3510duixjpsimvUomhishbmHenry County Hospital Work Phone: Start: 08-24-2024 End: 02-19-2785Ayjvpxl encounter procedureFormerly [facility] Work Phone: Start: 03-21-2024 End: 29-20-4788Pjslcm outpatient visit 25 minutesKendra Soto PLANT ELECTRICIAN-UPHOLSTERY AUTO TRIMMER Work Phone: [facility] MedicineComment on above: Anxiety (Primary Dx); At risk for sleep apnea; Hemorrhoids, unspecified hemorrhoid typeStart: 03-21-2024 End: 68-57-5475dzwmfllvacVXTJQRSt. [facility] Start: 01-19-2024 End: 44-76-9806Iqpzse OnlySly Freyer PLANT ELECTRICIAN-UPHOLSTERY AUTO TRIMMER Work Phone: [facility] Family MedicineStart: 01-19-2024 End: 75-40-0803HjgyzxXbxxek Schlachter PLANT ELECTRICIAN-UPHOLSTERY AUTO TRIMMER Work Phone: [facility] Physicians Family MedicineStart: 09-22-2023 End: 49-84-7824Fiqahcw encounter statusSly Soto PLANT ELECTRICIAN-UPHOLSTERY AUTO TRIMMER Work Phone: [facility] [employer] Work Phone: Start: 09-22-2023 End: 55-18-0451Zshorcyz preventive med est patient 18-39 yrsKendra Soto PLANT ELECTRICIAN-UPHOLSTERY AUTO TRIMMER Work Phone: [facility] Physicians Family MedicineComment on above: Wellness examination (Primary Dx); Anxiety; Irritable bowel syndrome with both constipation and diarrheaStart: 09-13-2023 End: 38-59-5607LpciydJsdpxj Schlachter PLANT ELECTRICIAN-UPHOLSTERY AUTO TRIMMER Work Phone: [facility] MedicineStart: 08-03-2023 RefillSly oSto PLANT ELECTRICIAN-UPHOLSTERY AUTO TRIMMER Work Phone: [facility] MedicineStart: 07-14-2023 End: 22-47-3770evqvowmlwiWZKMBU SCHLACHTERHolzer Hospital HospitalStart: 07-14-2023 End: 78-29-6584Oyrges outpatient visit 15 minutesSly Soto PLANT ELECTRICIAN-UPHOLSTERY AUTO TRIMMER Work Phone: [facility] Physicians Family MedicineComment on above: Diarrhea, unspecified type (Primary Dx)Start: 08-22-2022 End: 09-80-4501gfhelqmaheTD SHELBI V WESTFacility:P8Glecm: 06-08-2022 End: 58-44-9775dmisbxhhhrXhdfgi Ramila Other [email or web address] Other Start: 05-21-3613Httmwk outpatient visit 15 minutes Charisma DymondFPG [facility] Care ClydeStart: 10-29-2021 End: 86-56-3422embiyvniymDdsdle Ramila Other [email or web address] Other Start: 69-35-7353Jkwqnt outpatient visit 15 minutes Charisma DymondFPG [facility] Care ClydeStart: 03-06-2021 End: 20-09-0951tsvuyxjvwjLpwriyhlp Breault Other [email or web address] Other Start: 32-57-2552Gtjpam outpatient visit 15 minutes Mary KnoxFPG [facility] Procedures DateProcedureProcedure DetailPerforming ClinicianStart: 48-19-6567Lnorwg-up visitFollow-upKENDRA SMITHtart: 32-30-5232Vylxl depression screening assessmentSly Soto APRN-UPHOLSTERY AUTO TRIMMER Work Phone: Plan of Treatment DateCare ActivityDetailAuthorStart: 70-18-8363Tuulw BMI ScreeningAdult BMI ScreeningProAvita Health Systemca Health SystemStart: 52-53-7763Cbhqmqp ScreeningTobacco ScreeningProAvita Health Systemca Health SystemStart: 97-23-0372Dzetiqcyk vaccinationInfluenza VaccineProAvita Health Systemca Health SystemStart: 10-18-2024 End: 99-67-1601Gsqcrxqbsbdb consultation with gbibuva2110/18/2024 9:15 AM EDT Telemedicine [facility] [address] [place] [address] Sly Soto APRN-CNP [address] [place] [address] [facility] Start: 09-26-2024 End: 35-55-5927Helnifo encounter afmmkqnmm62/27/2025 9:00 AM EDT Office Visit [facility] [address], [id number] Sly Soto APRN-CNP [address] [place] [address] [facility] MedicineStart: 41-36-2076Qztjq BMI ScreeningAdult BMI ScreeningProAvita Health Systemca [facility] SystemStart: 44-68-2395Ufvuvap ScreeningTobacco ScreeningRiverview Health Instituteca [facility] SystemStart: 33-50-1927Mphbq BMI ScreeningAdult BMI ScreeningProMedica [facility] SystemStart: 75-41-7420Iuxokxj ScreeningTobacco ScreeningProAvita Health Systemca [facility] SystemStart: 03-17-2024 End: 45-15-6147Zwqzcsf encounter bfcxbixwh38/15/2024 8:30 AM EST Office Visit [facility] [address], [id number] Sly Soto APRN-UPHOLSTERY AUTO TRIMMER [address] [place] [address] [facility] MedicineStart: 04-91-7919KAZIR-19 Vaccine ()COVID-19 Vaccine ()ProMRedwood LLC SystemStart: 71-89-0961DKMFO-19 Vaccine ()COVID-19 Vaccine ()ProMRedwood LLC SystemStart: 74-69-6004Umnngigpy vaccinationInfluenza VaccineProAs[facility] SystemStart: 09-22-2023 End: 90-77-3402NBW W Auto Differential panel - BloodCBC auto differential Lab Routine Wellness examination Expected: 09/22/2023, Expires: 09/21/2024[facility] Work Phone: comment on above:Expected: 09/22/2023, Expires: 09/21/2024Start: 09-22-2023 End: 03-72-0564Bzjur 1996 panel - Serum or PlasmaLipid profile Lab Routine Wellness examination Expected: 09/22/2023, Expires: 09/21/2024Pro[facility] SystemComment on above:Expected: 09/22/2023, Expires: 09/21/2024Start: 09-22-2023 End: 73-73-0631Acculcv encounter bufgeoorp77/22/2024 8:00 AM EDT Office Visit [facility] [address], [id number] Sly Soto APRN-UPHOLSTERY AUTO TRIMMER [address] [place] [address] [facility] MedicineStart: 71-73-8583Cwluknbhzo ScreeningDepression ScreeningProAshtab[facility] SystemStart: 31-25-5155NOGLX-19 Vaccine (3 - 2023-24 season)COVID-19 Vaccine ( season)[facility] Hospitaltart: 10-93-3916Irdmpmvll vaccinationInfluenza VaccineCrawley Memorial Hospitaltart: 87-39-4996AFcR,Tdap and Td Vaccines (7 - Td or Tdap)DTaP,Tdap and Td Vaccines (7 - Td or Tdap)[facility] Hospitaltart: 89-74-9611Jhuakfg CounselingTobacco CounselingK[facility]tering Health [facility] End: 07-13-2024 difficile by PCRC difficile by PCR Lab Routine Diarrhea, unspecified type 1 Occurrences starting 07/14/2023 until 07/13/2024[facility] Work Phone: comment on above:1 Occurrences starting 07/14/2023 until 07/13/2024lostridioides difficile toxin genes [Presence] in Stool by CHARLES with probe detectionC difficile by PCR Lab Routine Diarrhea, unspecified type 07/14/2023 12:47 PM [facility] End: 87-46-8092Rfjgghxlpdsod metabolic 2000 panel - Serum or PlasmaComprehensive metabolic panel Lab Routine Wellness examination 1 Occurrences starting 09/22/2023 until 09/21/2024[facility] TownshipComment on above:1 Occurrences starting 09/22/2023 until 09/21/2024[facility] Immunizations Immunization DateImmunizationNotesCare [id number], injectable, quadrivalent, preservative freeSly Soto PLANT ELECTRICIAN-UPHOLSTERY AUTO TRIMMER Work Phone: [facility] TownshipYjpkmd15-74-5711cwtmsblel virus vaccine, unspecified formulationSly Soto PLANT ELECT[employer]IAN[employer] AUT[employer] TRIMMER Work Phone: [facility] TownshipHdrthy83-33-5115lgnzvpvrmkizv polysaccharide (groups A, C, Y and W-135) diphtheria toxoid conjugate vaccine (MCV4P)Sly Soto [employer]ANT ELECTRICIAN[employer] AUT[employer] TRIMMER Work Phone: [facility] TownshipRyfqbh60-82-1905ydapxwspp B vaccine, pediatric or pediatric/adolescent dosageKendra Soto PLANT ELECTRICIAN[employer]OLSTERY AUTO TRIMMER Work Phone: [facility]12-27-2005tetanus toxoid, reduced diphtheria toxoid, and acellular pertussis vaccine, adsorbedKendra Schlachter PLANT ELECTRICIAN[employer]OLSTERY AUTO TRIMMER Work Phone: [facility] TownshipDtjsfd22-89-9259uckgcdwsi B vaccine, pediatric or pediatric/adolescent dosageKendra Schlachter PLANT ELECTRICIAN[employer]UPHOLSTERY AUTO TRIMMER Work Phone: [facility] TownshipTyeykc99-65-6353rkkmhrrcc virus vaccineKendra Schlachter PLANT ELECTRICIAN[employer]UPHOLSTERY AUTO TRIMMER Work Phone: [facility] TownshipSmadll88-91-2125nzlavvqwy B vaccine, pediatric or pediatric/adolescent dosageKendra Schlachter PLANT ELECTRICIAN[employer]UPHOLSTERY AUTO TRIMMER Work Phone: [facility] TownshipGvpyux73-84-5279ctbqixlol virus vaccineKendra Schlachter PLANT ELECTRICIAN[employer]OLSTERY AUTO TRIMMER Work Phone: [facility] TownshipRmyjbe56-99-9334cmimazsums, tetanus toxoids and acellular pertussis vaccine, unspecified formulationKendra Schlachter PLANT ELECTRICIAN[employer]OLSTERY AUTO TRIMMER Work Phone: [facility]08-07-1997measles, mumps and rubella virus vaccineKendra Schlachter PLANT ELECTRICIAN[employer]OLSTERY AUTO TRIMMER Work Phone: [facility] TownshipPrqxlr20-86-4794iotngwknoe vaccine, unspecified formulationKendra Schlachter PLANT ELECTRICIAN[employer]UPHOLSTERY AUTO TRIMMER Work Phone: [facility] TownshipTltrcn22-62-1879ujszrsgjdj, tetanus toxoids and acellular pertussis vaccine, unspecified formulationKendra Schlachter PLANT ELECTRICIAN[employer]UPHOLSTERY AUTO TRIMMER Work Phone: [facility] TownshipSwgtiq43-89-9986sgszegrgdz vaccine, unspecified formulationKendra Schlachter PLANT ELECTRICIAN[employer]UPHOLSTERY AUTO TRIMMER Work Phone: [facility] TownshipYbtvuq41-71-9926uvuzpoikhdj influenzae type b vaccine, conjugate unspecified formulationKendra Schlachter PLANT ELECTRICIAN[employer]UPHOLSTERY AUTO TRIMMER Work Phone: [facility]02-08-1993measles, mumps and rubella virus vaccineKendra Schlachter PLANT ELECTRICIAN[employer]UPHOLSTERY AUTO TRIMMER Work Phone: [facility] TownshipXbonrd43-10-1476ejvhiydtvo, tetanus toxoids and acellular pertussis vaccine, unspecified formulationKendra Schlachter PLANT ELECTRICIAN[employer]UPHOLSTERY AUTO TRIMMER Work Phone: [facility] TownshipTqxaoe61-45-6862bfejsvriamf influenzae type b vaccine, conjugate unspecified formulationKendra Schlachter PLANT ELECTRICIAN[employer]UPHOLSTERY AUTO TRIMMER Work Phone: [facility] TownshipLefsqr29-27-5850gkzawrrmaw, tetanus toxoids and acellular pertussis vaccine, unspecified formulationKendra Schlachter PLANT ELECTRICIAN[employer]UPHOLSTERY AUTO TRIMMER Work Phone: [facility] TownshipVpyxxp89-67-9653josctfvqarj influenzae type b vaccine, conjugate unspecified formulationKendra Schlachter PLANT ELECTRICIAN[employer]UPHOLSTERY AUTO TRIMMER Work Phone: [facility] TownshipTgtgij31-00-7186lnjrssdogs vaccine, unspecified formulationKendra Schlachter PLANT ELECTRICIAN[employer]UPHOLSTERY AUTO TRIMMER Work Phone: [facility] TownshipDblhhg75-23-8570axtefqkwwo, tetanus toxoids and acellular pertussis vaccine, unspecified formulationKendra Schlachter PLANT ELECTRICIAN[employer]UPHOLSTERY AUTO TRIMMER Work Phone: [facility] TownshipKiaplh02-91-4751lffilrvknhw influenzae type b vaccine, conjugate unspecified formulationKendra Schlachter PLANT ELECTRICIAN[employer]UPHOLSTERY AUTO TRIMMER Work Phone: [facility] TownshipUukmsg20-08-0865zllrjytfqt vaccine, unspecified formulationKendra Schlachter PLANT ELECTRICIAN[employer]UPHOLSTERY AUTO TRIMMER Work Phone: [facility] Payers DatePayer CategoryPayerPolicy [id number] Care Other (unspecified)[facility] Member Subscriber Plan / Payer (Effective 2022-Present) Name: Ivan Cronin Relation to Subscriber: Self Name: Ivan Cronin Payer ID: [id number] (NAIC) Type: Not on file Address[address] [id number] Health InsuranceINDIANA [facility] [id number] 2022- Present [phone] [address] [address] [place] [address] [id number] [id number] Health [id number] [facility] [id number] Social History DateTypeDetailFacilityUnknown if ever smokedNorth [place] Other Start: 07-14-2023 End: 71-51-4636Jrs Assigned At BirthProAs[facility] SystemStart: 08-12-2022 Tobacco smoking status NHISSmokes tobacco dailyProUab [facility] Health SystemHistory of tobacco useCigarette SmokerProAshtabula County Medical Center SystemStart: 46-06-5109Rvjrsfg use and exposureUser of smokeless tobaccoProSt. Vincent Hospitaltart: 07-14-2023 End: 37-58-3739Nxiibzoug beverage intakeCurrent drinker of alcohol (finding) [facility] Hospitaltart: 07-14-2023 End: 18-81-2843Yblsxwg of Social functionMount St. Mary Hospital SystemHow hard is it for you to pay for the very basics like food, housing, medical care, and heating Not hard at allCrawley Memorial Hospitaltart: 67-75-6165Yfl assigned at birthNot on fileCrawley Memorial Hospitaltart: 12-06-2014 End: 89-25-3689RrsQpar (finding)[facility] Hospitaltart: 80-90-7142Dfveojy smoking status NHISUnknown if ever smokedCity Hospitaltart: 55-43-4390Efw [facility] 10-29-2021 to 10-18-2024 Note Date & VyjjQxgaWqahxpar46-33-2398 History of Present illness Narrative* Sly Soto APRN-OK - 10/18/2024 9:15 AM EDT Images from the original note were not included. [address] [facility] [id number] SUBJECTIVE: Patient ID: Ivan Cronin is a 34 y.o. male. Video Visit via Real-time Synchronous Audiovisual Provider Location: [facility] [address] [facility] [id number] Patient Location: work Video Visit Consent Statement: I discussed risks, benefits, and alternatives of a real-time synchronous audiovisual consultation with the patient (and any accompanying persons) including the risks that the patient's personal health details and medical records will be discussed over real-time, synchronous, interactive video/audio/telecommunication technology, the visit will not be recorded withoutthe express consent of both the provider and the patient, and that there are some limitations compared to eyks-we-bphz evaluations. The patient consented to the presence of additional virtual and/or in-person participants. We elected to proceed. Patient presents to the office by video visit for check up for anxiety and IBS. He is doing well onmedications. Has some stress at work but over all is doing okay. Denies any concerns. The following portions of the patient's history were reviewed and updated as appropriate: allergies, current medications, past family history, past medical history, past social history, past surgicalhistory and problem list. REVIEW OF SYSTEMS: Review of Systems Constitutional: Negative for fatigue, fever and unexpected weight change. HENT: Negative for congestion, ear pain, sinus pressure, sinus pain and sore throat. Eyes: Negative for photophobia, pain, discharge and visual disturbance. Respiratory: Negative for cough and shortness of breath. Cardiovascular: Negative for chest pain, palpitations and leg swelling. Gastrointestinal: Negative for abdominal pain, diarrhea, nausea and vomiting. Endocrine: Negative for polydipsia, polyphagia and polyuria. Genitourinary: Negative for difficulty urinating, frequency, hematuria and urgency. Musculoskeletal: Negative for arthralgias, gait problem, joint swelling and neck pain. Skin: Negative for pallor and rash. Neurological: Negative for dizziness, weakness, light-headedness and numbness. Psychiatric/Behavioral: Negative for sleep disturbance. The patient is nervous/anxious. PHYSICAL EXAMINATION: There were no vitals filed for this visit. Physical Exam ASSESSMENT/PLAN: Diagnoses and all orders for this visit: Anxiety Irritable bowel syndrome with both constipation and diarrhea Follow-up: Follow up in six months for wellness or as needed Total time taken 15 min PATRICIA Holland 10/18/24 0931 documented in [facility] encounterK[facility]11-19-2024 History of Present illness Narrative* PATRICIA Holland - 03/21/2024 9:00 AM EST Images from the original note were not included. [address] [facility] [id number] SUBJECTIVE: Patient ID: Ivan Cronin is a 34 y.o. male. Patient presents to the office for routine check up. He decreased the elavil to 25mg due to fatiguewith medication. He feels it is helping his anxiety but he is still not sleeping. He is up every hour, at times feels like he is gasping for air. Will have him see sleep medicine. He occasionally have back pain that keeps him up but he has not had any back issues and still didn't sleep last night. He does have issues with hemorrhoids and has for years (high school), and feels bleeding is getting worse. Suggest general surgery- he will think about. At Follow-up Associated symptoms include fatigue. Pertinent negatives include no abdominal pain, arthralgias, chest pain, congestion, coughing, fever, joint swelling, nausea, neck pain, numbness, rash, sore throat, vomiting or weakness. The following portions of the patient's history were reviewed and updated as appropriate: allergies, current medications, past family history, past medical history, past social history, past surgicalhistory and problem list. REVIEW OF SYSTEMS: Review of Systems Constitutional: Positive for fatigue. Negative for fever and unexpected weight change. HENT: Negative for congestion, ear pain, sinus pressure, sinus pain and sore throat. Eyes: Negative for photophobia, pain, discharge and visual disturbance. Respiratory: Negative for cough and shortness of breath. Cardiovascular: Negative for chest pain, palpitations and leg swelling. Gastrointestinal: Negative for abdominal pain, diarrhea, nausea and vomiting. Hemorrhoids Endocrine: Negative for polydipsia, polyphagia and polyuria. Genitourinary: Negative for difficulty urinating, frequency, hematuria and urgency. Musculoskeletal: Negative for arthralgias, gait problem, joint swelling and neck pain. Skin: Negative for pallor and rash. Neurological: Negative for dizziness, weakness, light-headedness and numbness. Psychiatric/Behavioral: Positive for sleep disturbance. The patient is not nervous/anxious. PHYSICAL EXAMINATION: Vitals: 03/21/24 0858 BP: 116/64 Pulse: 68 Resp: 16 SpO2: 99% Weight: 67.1 kg (148 lb) Physical Exam Constitutional: Appearance: He is well-developed. HENT: Head: Normocephalic and atraumatic. Right Ear: External ear normal. Left Ear: External ear normal. Eyes: Conjunctiva/sclera: Conjunctivae normal. Pupils: Pupils are equal, round, and reactive to light. Cardiovascular: Rate and Rhythm: Normal rate and regular rhythm. Heart sounds: Normal heart sounds. Pulmonary: Effort: Pulmonary effort is normal. Breath sounds: Normal breath sounds. Abdominal: General: Bowel sounds are normal. Palpations: Abdomen is soft. Musculoskeletal: General: Normal range of motion. Cervical back: Normal range of motion. Skin: General: Skin is warm and dry. Neurological: Mental Status: He is alert and oriented to person, place, and time. ASSESSMENT/PLAN: Ivan was seen today for follow-up. Diagnoses and all orders for this visit: Anxiety At risk for sleep apnea Follow-up: Refilled elavil 25mg daily Referral to sleep medicine Anusol- as needed Did offer general surgery Follow up in six months PATRICIA Holland 03/21/24 0916 documented in this encounterK[facility]05-22-2024 History of Present illness Narrative* PATRICIA Holland - 09/22/2023 8:00 AM EDT Images from the original note were not included. [address] [facility] [address] Subjective: Ivan Cronin is a 33 y.o. male who presents for an Annual Wellness exam. Patient presents to the office for routine wellness. Anxiety is controlled with medication. Still having a hard time sleeping at night. Will try increasing Elavil to 50mg. We talked about sleep studyas well. Diarrhea is doing well. No concerns. Annual Exam Pertinent negatives include no abdominal pain, arthralgias, chest pain, congestion, coughing, fatigue, fever, joint swelling, nausea, neck pain, numbness, rash, sore throat, vomiting or weakness. The following portions of the patient's history were reviewed and updated as appropriate: medications, allergies, past medical history, past surgical history, social history, family history and immunization history Vitals: Vitals: 09/22/23 0751 BP: 116/70 Pulse: 98 Resp: 16 SpO2: 99% Weight: 63.5 kg (140 lb) Height: 172.7 cm (5' 8 ) History: Patient Active Problem List Diagnosis Date Noted Anxiety 09/22/2023 History reviewed. No pertinent past medical history. Past Surgical History: Procedure Laterality Date TONSILLECTOMY AND ADENOIDECTOMY History reviewed. No pertinent family history. Social History Tobacco Use Smoking status: Every Day Types: Cigarettes Smokeless tobacco: Current Substance Use Topics Alcohol use: Yes Allergies: No Known Allergies Immunization History Administered Date(s) Administered COVID-19, mRNA, LNP-S, PF, 30mcg/0.3mL Dose 09/05/2020, 09/27/2020 DTaP, Unspecified 1991, 1991, 1991, 12/23/1992, 12/07/1996 Hep B, Adolescent or Pediatric 10/16/2004, 11/20/2004, 04/28/2005 HiB 1991, 1991, 1991, 06/10/1992 Influenza, Injectable, quadrivalent (PF) 02/18/2018 MMR 06/10/1992, 12/07/1996 Meningococcal MCV4P 02/01/2007 Polio, Unspecified 1991, 1991, 12/23/1992, 12/07/1996 Tdap 04/28/2005 Varicella 10/16/2004, 11/20/2004 Review of Systems: Review of Systems Constitutional: Negative for fatigue, fever and unexpected weight change. HENT: Negative for congestion, ear pain, sinus pressure, sinus pain and sore throat. Eyes: Negative for photophobia, pain, discharge and visual disturbance. Respiratory: Negative for cough and shortness of breath. Cardiovascular: Negative for chest pain, palpitations and leg swelling. Gastrointestinal: Negative for abdominal pain, diarrhea, nausea and vomiting. Endocrine: Negative for polydipsia, polyphagia and polyuria. Genitourinary: Negative for difficulty urinating, frequency, hematuria and urgency. Musculoskeletal: Negative for arthralgias, gait problem, joint swelling and neck pain. Skin: Negative for pallor and rash. Neurological: Negative for dizziness, weakness, light-headedness and numbness. Psychiatric/Behavioral: Negative for sleep disturbance. The patient is not nervous/anxious. Objective: BP 116/70 Pulse 98 Resp 16 Ht 172.7 cm (5' 8 ) Wt 63.5 kg (140 lb) SpO2 99% BMI 21.29 kg/m Physical Exam Constitutional: Appearance: He is well-developed. HENT: Head: Normocephalic and atraumatic. Right Ear: Tympanic membrane, ear canal and external ear normal. Left Ear: Tympanic membrane, ear canal and external ear normal. Eyes: Conjunctiva/sclera: Conjunctivae normal. Pupils: Pupils are equal, round, and reactive to light. Cardiovascular: Rate and Rhythm: Normal rate and regular rhythm. Heart sounds: Normal heart sounds. Pulmonary: Effort: Pulmonary effort is normal. Breath sounds: Normal breath sounds. Abdominal: General: Bowel sounds are normal. Palpations: Abdomen is soft. Musculoskeletal: General: Normal range of motion. Cervical back: Normal range of motion. Skin: General: Skin is warm and dry. Neurological: Mental Status: He is alert and oriented to person, place, and time. Psychiatric: Mood and Affect: Mood normal. Assessment/Plan: Ivan was seen today for annual exam. Diagnoses and all orders for this visit: Wellness examination - CBC auto differential; Future - Comprehensive metabolic panel; Future - Lipid profile; Future Anxiety Irritable bowel syndrome with both constipation and diarrhea Other orders - amitriptyline (ELAVIL) 50 mg tablet; Take 1 tablet (50 mg total) by mouth nightly. Plan Outpatient Medications Prior to Visit Medication Sig Dispense Refill hyoscyamine (LEVSIN) 0.125 mg tablet Take 1 tablet (0.125 mg total) by mouth every 4 (four) hours as needed for cramping. 30 tablet 0 omeprazole (PriLOSEC) 40 mg capsule take 1 capsule by mouth in the morning 90 capsule 1 amitriptyline (ELAVIL) 25 mg tablet take 1 tablet by mouth nightly 90 tablet 1 No facility-administered medications prior to visit. Follow Up: Cbc,cmp, lipid profile Will call with results Increase elavil to 50mg daily Follow up in six months or as needed PATRICIA Holland 09/22/23 0804 documented in this encounterK[facility]03-13-2024 History of Present illness Narrative* PATRICIA Holland - 07/14/2023 10:00 AM EDT Images from the original note were not included. [address] [facility] [id number] SUBJECTIVE: Patient ID: Ivan Cronin is a 33 y.o. male. Patient presents to the office for complaints of diarrhea. Patient had IBS in the past and had beendoing well with dietary changes and anxiety medication. He states it started and he just felt unwell and the diarrhea and bloating started. He did go to work yesterday and felt good with no diarrhea and then it started back up today. Has taken pepto bismol with no relief. GI Problem The primary symptoms include abdominal pain and diarrhea. Primary symptoms do not include fever, fatigue, nausea, vomiting, arthralgias or rash. Diarrhea Associated symptoms include abdominal pain. Pertinent negatives include no arthralgias, coughing, fever or vomiting. The following portions of the patient's history were reviewed and updated as appropriate: allergies, current medications, past family history, past medical history, past social history, past surgicalhistory and problem list. REVIEW OF SYSTEMS: Review of Systems Constitutional: Negative for fatigue, fever and unexpected weight change. HENT: Negative for congestion, ear pain, sinus pressure, sinus pain and sore throat. Eyes: Negative for photophobia, pain, discharge and visual disturbance. Respiratory: Negative for cough and shortness of breath. Cardiovascular: Negative for chest pain, palpitations and leg swelling. Gastrointestinal: Positive for abdominal pain and diarrhea. Negative for nausea and vomiting. Endocrine: Negative for polydipsia, polyphagia and polyuria. Genitourinary: Negative for difficulty urinating, frequency, hematuria and urgency. Musculoskeletal: Negative for arthralgias, gait problem, joint swelling and neck pain. Skin: Negative for pallor and rash. Neurological: Negative for dizziness, weakness, light-headedness and numbness. Psychiatric/Behavioral: Negative for sleep disturbance. The patient is not nervous/anxious. PHYSICAL EXAMINATION: Vitals: 07/14/23 0959 BP: 130/72 Pulse: 88 Resp: 16 Temp: 36.7 C (98.1 F) SpO2: 98% Weight: 64 kg (141 lb) Physical Exam Constitutional: Appearance: He is well-developed. HENT: Head: Normocephalic and atraumatic. Right Ear: External ear normal. Left Ear: External ear normal. Eyes: Conjunctiva/sclera: Conjunctivae normal. Pupils: Pupils are equal, round, and reactive to light. Cardiovascular: Rate and Rhythm: Normal rate and regular rhythm. Heart sounds: Normal heart sounds. Pulmonary: Effort: Pulmonary effort is normal. Breath sounds: Normal breath sounds. Abdominal: General: Bowel sounds are normal. Palpations: Abdomen is soft. Musculoskeletal: Cervical back: Normal range of motion. Skin: General: Skin is warm and dry. Neurological: Mental Status: He is alert and oriented to person, place, and time. Psychiatric: Mood and Affect: Mood normal. ASSESSMENT/PLAN: Ivan was seen today for gi problem and diarrhea. Diagnoses and all orders for this visit: Diarrhea, unspecified type - GI Panel(stool pathogen panel); Future - CBC auto differential; Future - Erythrocyte Sedimentation Rate (ESR); Future - C difficile by PCR; Future - Comprehensive metabolic panel; Future Other orders - hyoscyamine (LEVSIN) 0.125 mg tablet; Take 1 tablet (0.125 mg total) by mouth every 4 (four) hours as needed for cramping. Follow-up: Cbc, cmp, sed rate C-diff Gi panel Will call with results Levsin sent to pharmacy Will call with results Work note written PATRICIA Holland 07/14/23 1016 documented in this encounterRiverview Health InstituteReplenish Beaumont HospitalWqydzd04-79-2616 Evaluation note* Encounter Date Diagnosis Assessment Notes Treatment Notes Treatment Clinical Notes Jun, Contact with and (freeman spected) exposure to covid-19 (ICD-10 - Z20.822) Jun,OVID-19 (ICD-10 - U07.1)Discharge Instructions for COVID-19 (Suspected or Confirmed ) material was printed Drink plenty fluids, get plenty of rest. Take Tylenol or Motrin as needed for aches pains or fevers. You must quarantine for 5 days after the onset of your symptoms of COVID. Follow-up with your family physician if no improvement in 2 to 3 days. [facility] Other 06-29-2022 Evaluation note* Encounter Date Diagnosis Assessment Notes Treatment Notes Treatment Clinical Notes Oct, COVID-19 (ICD-10 - U07.1) Drink plenty fluids, get plenty of rest. Take Tylenol or Motrin as needed for aches pains or fevers. You must quarantine for 5 days after the onset of your symptoms. Then you may go out and about butyou must wear a mask for 5 days. Follow-up with your family physician if no improvement in 2 to 3 days. [facility] Other Evaluation noteNort [place] Other Evaluation note* Diagnosis Wellness examination- Primary Anxiety Anxiety state, unspecified Irritable bowel syndrome with both constipation and diarrhea documented in this encounter [facility]woodsAridis Pharmaceuticals SystemEvaluation note* Diagnosis Diarrhea, unspecified type- Primary documented in this encounter [facility]woodsAridis Pharmaceuticals SystemEvaluation note* Diagnosis Anxiety- Primary Anxiety state, unspecified At risk for sleep apnea Hemorrhoids, unspecified hemorrhoid type documented in this encounter [facility]woodsSunlight PhotonicsEvaluation noteNo assessment information available [facility] Work Phone: Evaqqyjwrg note* Diagnosis Anxiety- Primary Anxiety state, unspecified Irritable bowel syndrome with both constipation and diarrhea documented in this encounter [facility] HospitalBase CRM SystemHistory general Narrative - ReportedNort [place] Other History general Narrative - Reported* Type Description Date Medical History acid reflux Surgical Historywisdom teeth [facility] Other InstructionsNot on filedocumented in this encounter [facility]woodsSunlight PhotonicsInstructions* Attachments The following attachments cannot be sent through Care Everywhere. * Quitting smoking ([place]enezuel[place]) documented in this encounterRiverview Health InstituteMyRepublic SystemInstructions* Attachments The following attachments cannot be sent through Care Everywhere. * Diarrhea in adolescents and adults ([place]an) documented in this encounterRiverview Health InstituteMyRepublic SystemInstructionsNot on file documented in this encounterRiverview Health InstituteMyRepublic SystemInstructionsNot on file documented in this encounterRiverview Health InstituteMyRepublic SystemInstructions* Attachments The following attachments cannot be sent through Care Everywhere. * Anxiety Discharge Instructions, Adult (Venezuelan) documented in this encounterGifford Medical CenterVOZInstructionsNot on file documented in this encounterRiverview Health InstituteAurora SpineInstructions* Attachments The following attachments cannot be sent through Care Everywhere. * Irritable bowel syndrome ([place]enezuelan) documented [facility] Summary Purpose Family History No Family History Records FoundNo Family History Records FoundNo Family History Records Found Advance Directives No Advanced Directives Records Found Advance Directive Response Recorded Date/ Time Advance Directives No August 24 10:13am Chief Complaint and Reason for Visit Chief Complaint Admit Date sinus pressure, body aches, congestion A pril 2024 10:14am Additional Source Comments REASON FOR VISIT (unrecogniz ed section and content) ReasonCommentsMed RefillReasonCommentsAnnual ExamReasonCommentsGI Problem DiarrheaReasonCommentsFollow-upReasonOnset DateCommentsMed Leltqx9110/12/2024 (unrecognized sect ion and content) No Status Records FoundNo Status Records FoundNo Status Records Found INFORMATION SOURCE (unrecogn ized section and content) DATE CREATED AUTHOR 08/29/2022 [facility] DATE CREATED AUTHOR AUTHOR'S ORGANIZ ATION 07/15/2023 [facility] DATE CREATED AUTHOR AUTHOR'S ORGANIZ ATION 10/21/2024 [facility] Care Teams (unrecognized sec tion and content) Team MemberRelationshipSpecialtyStart DateEnd Date Sly Soto APRN-CNP [address] [place] [address] PCP - [facility]08/12/22Team MemberRelationshipSpecialtyStart DateEnd Date Sly Soto APRN-CNP [address] [place] [address] PCP - [facility] Medicine08/12/22Team MemberRelationshipSpecialtyStart DateEnd Date Sly Soto APRN-CNP [address] [place] [address] PCP - [facility]08/12/22Team MemberRelationshipSpecialtyStart DateEnd Date Sly Soto APRN-CNP [address] [place] [address] PCP - [facility]08/12/22Team MemberRelationshipSpecialtyStart DateEnd Date Sly Soto APRNOK [address] [place] [address] PCP - [facility]08/12/22Team MemberRelationshipSpecialtyStart DateEnd Date [facility] [address] [place] [address] [facility] - [facility]08/12/22 Team Status: Active Member Role Status Dates PHYSICIAN NO FAMILY Primary Care Provider Active Team Status: Inactive Member Role Status Dates PHYSICIAN NO FAMILY Primary Care Provider Active Start: August 24, 2024 End: August 24, 2024Cabrera Thomas ProviderActiveStart: August 24, 2024 End: August 24, 2024Team MemberRelationshipSpecialtyStart DateEnd Date Sly Soto APRNOK [address] [place] [address] [facility]08/12/22Team MemberRelationshipSpecialtyStart DateEnd Date Sly [facility] [address] [place] [address] [facility]08/12/22 Goals (unrecognized section and content) Goals may be documented in a n alternate section FOR RECORDS PERTAINING TO PATIENTS WHO ARE OR HAVE BEEN ENROLLED IN A CHEMICAL DEPENDENCY/SUBSTANCEABUSE PROGRAM, SOME INFORMATION MAY BE OMITTED. This clinical summary was aggregated from multiple sources. Caution should be exercised in using it in the provision of clinical care. This summary normalizes information from multiple sources, and as a consequence, information in this document may materially change the coding, format and clinical context of patient data. In addition, data may be omitted in some cases. CLINICAL DECISIONS SHOULD BE BASED ON THE PRIMARY CLINICAL RECORDS. [facility] [employer] [facility]. provides no warranty or guarantee of the accuracy or completeness of information in this document.
--- OUTSIDE RECORDS SUMMARY | 2025-03-15 06:53 | XMS_ITS | Clinical Summary ---
Author Organization [facility] Address [address] [place] [address] Care Team Providers Care Customer Care Voice Consultant Name Role Phone Sandra Verde DO Primary Care Provider [phone] Social History Tobacco UseTypesPacks/DayYears UsedDateSmoking Tobacco: Never AssessedSex and Gender InformationValueDate RecordedSex Assigned at BirthNot on fileLegal Sex Male07/15/2022 7:11 PM EDTGender IdentityNot on fileSexual OrientationNot on file Plan of Treatment Not on file Care Teams Team MemberRelationshipSpecialtyStart DateEnd Date Sandra Verde DO PCP - GeneralFamily Medicine09/08/22
--- NOTE | 2025-03-15 07:41 | ED_ITS ---
HPI - Ear Problem General Chief complaint: Ear Stated complaint: EAR ISSUE Time Seen by Provider: 03/15/25 07:23 Source: patient Mode of arrival: walk-in Limitations: no limitations History of Present Illness HPI Narrative: The patient is a 35-year-old male presenting to the ER after he was cleaning his ear yesterday almost around 5 PM when he all of a sudden felt a poke to his ear and he stopped being able to hear anything in his right ear, patient mentioned that he was using a machine that have a camera to clean his ear. The patient denies any other concerns of runny nose congestion He mentioned that he usually have a wax problem with his ears and he have to clean them regularly Related Data Previous Rx's ?Medication ?Instructions ?Recorded amoxicillin 500 mg tablet 500 mg PO TID 7 days #21 tab s 03/15/25 ibuprofen 600 mg tablet 600 mg PO TID PRN pain #20 t abs 03/15/25 Allergies Allergy/AdvReac Type Severity Reaction Status Date / Time No Known Drug Allergies Allergy Verified 03/15/25 06:52 Review of Systems ROS Status of ROS 10 or more systems reviewed and unremark able except as noted in history and below PFSH PFSH Social History Little interest or pleasure in doing things: not at all Feeling down, depressed, or hopeless: not at all Exam Narrative Exam Narrative: Nurses notes and vital signs reviewed and patient is not hypoxic. General: Well-appearing and in no apparent distress. Skin: Warm, dry, no pallor noted. No rash. Head: Normocephalic, atraumatic. Neck: Supple, non-tender. Eye: Pupils are equal, round and EOMI. No scleral icterus. Ears, Nose, Mouth, and Throat: Left ear tympanic membrane is clear , no acute pathology detected on left ear exam, right ear examination showed that the patient have a great amount of wax blocking the way to see the tympanic membrane Neurological: A&O x4. No cranial nerve dysfunction observed. No truncal ataxia. Moves all extremities. Sensation intact. Psychiatric: Cooperative and interactive. Normal mood and affect. Constitutional Vital Signs, click to edit/add: Last Vital Signs Temp 98 F 03/15/25 06:48 Pulse 78 03/15/25 06:48 Resp 18 03/15/25 06:48 BP 143/92 H 03/15/25 06:48 Pulse Ox 97 03/15/25 06:48 O2 Del Method Room Air 03/15/25 06:48 Course Vital Signs Vital signs: Vital Signs Temperature 98 F 03/15/25 06:48 Pulse Rate 78 03/15/25 06:48 Respiratory Rate 18 03/15/25 06:48 Blood Pressure 143/92 H 03/15/25 06:48 Pulse Oximetry 97 03/15/25 06:48 Oxygen Delivery Method Room Air 03/15/25 06:48 Temperature 98 F 03/15/25 06:48 Pulse Rate 78 03/15/25 06:48 Respiratory Rate 18 03/15/25 06:48 Blood Pressure 143/92 H 03/15/25 06:48 Pulse Oximetry 97 03/15/25 06:48 Oxygen Delivery Method Room Air 03/15/25 06:48 Medical Decision Making MDM Narrative Medical decision making narrative: The patient presentation is most concerning for ruptured tympanic membrane specially that the patient mentioned that he started having pain and then stopped hearing his right ear Right now the patient will be treated as possible tympanic rupture with the antibiotic started and he is to keep the ear clean and dry for the next few days and he was referred to ENT as outpatient The patient was instructed if after finishing the antibiotic and there is no more pain he still not able to hear it could be secondary to the wax at that time but right now the priority is to treat for possible eardrum pathology Patient referred to ENT as outpatient The patient to follow-up with the primary care within 2 to 3 days and to come back to the ER in case of any worsening of the current symptoms or any new symptoms or concerns Discharge Plan Discharge Chief Complaint: Ear Clinical Impression: Eardrum rupture, right Patient Disposition: Home, Self-Care Time of Disposition Decision: 07:42 Condition: Good Mode of Transportation: Private Vehicle Prescriptions / Home Meds: New amoxicillin 500 mg tablet 500 mg PO TID 7 Days Qty: 21 0RF ibuprofen 600 mg tablet 600 mg PO TID PRN (Reason: pain) Qty: 20 0RF Print Language: Yoruba Instructions: Ruptured Eardrum (ED) Referrals: Mabel Gordon MD [Physician, Ear, Nose, Throat] - 1 week Shantell Soto NP [Primary Care Provider] - 1 week Discharge Date/Time: 03/15/25 07:53
== END 2025-03-15 07:53 | disposition home or self-care (01) ==
PROVIDERS: Emergency Provider Emergency Medicine; PCP Nurse Practitioner Family
DX: H72.91 Unspecified perforation of tympanic membrane, right ear (principal)
CPT/HCPCS: 99283